=== PATIENT | female | born 1990 | race Two or more races ===

== ENCOUNTER 2017-10-17 08:16 | Inpatient (IN) | payer MEDICAID ==
[2017-10-17] MEDS ORDERED: METHYLERGONOVINE 0.2 MG INJ IM (09:30)
[2017-10-17] MEDS ORDERED: IBUPROFEN 600 MG TAB PO (09:30)
[2017-10-17] MEDS ORDERED: CARBOPROST 250 MCG INJ IM (09:30)
[2017-10-17] MEDS ORDERED: BUTORPHANOL 1 MG INJ IV (09:30)
[2017-10-17] MEDS ORDERED: BUTORPHANOL 2 MG INJ IV (09:30)
[2017-10-17] MEDS ORDERED: OXYTOCIN 30 UNITS/LR 500 ML IV (09:30)
[2017-10-17] MEDS ORDERED: MISOPROSTOL 200 MCG TAB PR (09:30)
[2017-10-17 10:05] LABS: ADD MAN DIFF? NO
[2017-10-17 10:11] LABS: BASOPHILS % 0.3 % (0.0-2.0); EOSINOPHILS # 0.1 10^3/ul (0.0-0.5); EOSINOPHILS % 1.5 % (0.0-7.0); HEMATOCRIT 35.1 % (37.0-47.0); LYMPHOCYTES # 1.2 10^3/ul (0.8-2.9); LYMPHOCYTES % 20.2 % (15.0-51.0); MEAN CORPUSCULAR HEMOGLOBIN 32.4 pg (29.0-33.0); MEAN CORPUSCULAR HGB CONC 34.2 g/dl (32.0-37.0); MEAN CORPUSCULAR VOLUME 94.9 fl (82.0-101.0); MEAN PLATELET VOLUME 11.1 fl (7.4-10.4); MONOCYTE # 0.6 10^3/ul (0.3-0.9); MONOCYTES % 9.3 % (0.0-11.0); NEUTROPHIL # 4.2 10^3/ul (1.6-7.5); NEUTROPHILS % 68.2 % (39.0-77.0); PLATELET COUNT 152 10^3/UL (140-415); RED CELL DISTRIBUTION WIDTH 12.1 % (11.5-14.5)
[2017-10-17 10:11] LABS: WHITE BLOOD COUNT 6.1 10^3/ul (4.8-10.8)
[2017-10-17] MEDS ORDERED: DINOPROSTONE 10 MG VAG SUPP VAG (10:30)
[2017-10-17 10:31] LABS: INR 0.86; PROTIME 11.8 Sec (11.9-14.9); PT RATIO 0.9
[2017-10-17 10:32] LABS: PARTIAL THROMBOPLASTIN TIME 27.1 Sec (25.0-35.0)
[2017-10-17] MEDS: LACTATED RINGER'S 1,000 ML IV* ×2 (11:20→16:36)
[2017-10-17] MEDS: DINOPROSTONE 10 MG VAG SUPP VAG (11:21)
[2017-10-17 14:14] LABS: HEPATITIS B SURFACE ANTIGEN NEGATIVE (NEGATIVE)
[2017-10-17 22:20] LABS: RAPID PLASMA REAGIN NONREACTIVE (NR)
[2017-10-18] MEDS: LACTATED RINGER'S 1,000 ML IV* ×5 (01:15→21:59)
[2017-10-18] MEDS ORDERED: FENTAnyl 2MCG/ML-ROPIV 0.2% 100 ML (17:26)
[2017-10-18] MEDS: OXYTOCIN 30 UNITS/LR 500 ML IV ×3 (18:50→23:29)
[2017-10-18] MEDS ORDERED: NALOXONE (0.4 MG/ML) INJ IV (20:00)
[2017-10-18] MEDS ORDERED: FENTAnyl 2MCG/ML-ROPIV 0.2% 100 ML BAG EPI (20:00)
[2017-10-18] MEDS: MINERAL OIL LIGHT 10 ML VIAL TOP ×2 (21:51→23:38)
[2017-10-18] MEDS: LIDOCAINE 1% (MPF) 30 ML INJ INJ ×2 (23:33→23:37)
[2017-10-19] MEDS: CEFAZOLIN 2 GM/50 ML (PMX) 50 ML IVPB (00:28)
[2017-10-19] MEDS: OXYTOCIN 30 UNITS/LR 500 ML IV (03:40)
[2017-10-19] MEDS ORDERED: MISOPROSTOL 200 MCG TAB PR (04:30)
[2017-10-19] MEDS ORDERED: OXYTOCIN 30 UNITS/LR 500 ML IV (04:30)
[2017-10-19] MEDS ORDERED: ZOLPIDEM 5 MG TAB PO (04:30)
[2017-10-19] MEDS ORDERED: METHYLERGONOVINE 0.2 MG INJ IM (04:30)
[2017-10-19] MEDS ORDERED: HYDROCODONE/APAP (5/325) TAB PO ×2 (04:30)
[2017-10-19] MEDS ORDERED: CARBOPROST 250 MCG INJ IM (04:30)
[2017-10-19] MEDS: CEPHALEXIN 500 MG CAP PO ×3 (05:42→18:25)
[2017-10-19] MEDS: LANOLIN 7 GM TUBE TOP (05:42)
[2017-10-19] MEDS: IBUPROFEN 600 MG TAB PO ×3 (05:42→18:25)
[2017-10-19] MEDS: WITCH HAZEL/GLYCERIN PAD PR (05:43)
[2017-10-19] MEDS: BENZOCAINE 20% 56 ML SPRAY TOP (05:43)
[2017-10-19 06:07] LABS: ADD UMIC YES; UR ASCORBIC ACID NEGATIVE (NEGATIVE); UR BACTERIA FEW /HPF (NONE SEEN); UR BILIRUBIN (Dip) NEGATIVE (NEGATIVE); UR BLOOD (Dip) 3+ mg/dL (NEGATIVE); UR CLARITY CLEAR (CLEAR); UR COLOR YELLOW (YELLOW); UR GLUCOSE (Dip) 1+ mg/dL (NEGATIVE); UR KETONES (Dip) 1+ mg/dL (NEGATIVE); UR LEUKOCYTE ESTERASE (Dip) NEGATIVE Leu/ul (NEGATIVE); UR MUCUS FEW /HPF (NONE SEEN); UR NITRITE (Dip) NEGATIVE (NEGATIVE); UR RBC 13 /HPF (0-5); UR SPECIFIC GRAVITY (Dip) 1.006 (1.003-1.030); UR TOTAL PROTEIN (Dip) 1+ mg/dl (NEGATIVE); UR UROBILINOGEN (Dip) NEGATIVE (NEGATIVE); UR WBC 3 /HPF (0-5)
[2017-10-19] MEDS: LACTATED RINGER'S 1,000 ML IV* ×3 (07:51→20:18)
[2017-10-19 09:19] LABS: ADD MAN DIFF? NO
[2017-10-19 09:26] LABS: BASOPHILS % 0.1 % (0.0-2.0); EOSINOPHILS % 0.3 % (0.0-7.0); HEMATOCRIT 34.2 % (37.0-47.0); HEMOGLOBIN 12.1 g/dl (12.0-16.0); IMMATURE GRANS #M 0.06 10^3/ul; IMMATURE GRANS % (M) 0.4 %; LYMPHOCYTES # 1.4 10^3/ul (0.8-2.9); LYMPHOCYTES % 10.2 % (15.0-51.0); MEAN CORPUSCULAR HEMOGLOBIN 33.3 pg (29.0-33.0); MEAN CORPUSCULAR HGB CONC 35.4 g/dl (32.0-37.0); MEAN CORPUSCULAR VOLUME 94.2 fl (82.0-101.0); MEAN PLATELET VOLUME 11.3 fl (7.4-10.4); MONOCYTE # 1.3 10^3/ul (0.3-0.9); MONOCYTES % 9.5 % (0.0-11.0); NEUTROPHIL # 10.7 10^3/ul (1.6-7.5); NEUTROPHILS % 79.5 % (39.0-77.0); PLATELET COUNT 126 10^3/UL (140-415); RED BLOOD COUNT 3.63 10^6/ul (4.20-5.40); RED CELL DISTRIBUTION WIDTH 12.1 % (11.5-14.5)
[2017-10-19 09:26] LABS: WHITE BLOOD COUNT 13.5 10^3/ul (4.8-10.8)
[2017-10-19] MEDS: SENNA/DOCUSATE NA (8.6MG/50MG) TAB PO ×2 (09:32→21:13)
[2017-10-19] MEDS: MAGNESIUM HYDROXIDE 30ML CUP PO ×2 (09:32→21:13)
[2017-10-19] MEDS: DIBUCAINE 1% 30 GM OINT PR (17:19)
[2017-10-20] MEDS: CEPHALEXIN 500 MG CAP PO ×3 (00:02→11:20)
[2017-10-20] MEDS: IBUPROFEN 600 MG TAB PO ×3 (00:02→11:20)
[2017-10-20 01:49] LABS: RHOGAM PROFILE 1 1
[2017-10-20] MEDS: LACTATED RINGER'S 1,000 ML IV* ×2 (04:18→12:18)
[2017-10-20] MEDS: WITCH HAZEL/GLYCERIN PAD PR (05:40)
[2017-10-20] MEDS: MEASLES,MUMPS,RUBELLA VACCINE INJ SC* (09:00)
[2017-10-20] MEDS: VARICELLA VACCINE LIVE/PF 1,350 UNIT/0.5 ML ML SC* (09:00)
[2017-10-20 09:25] LABS: ADD MAN DIFF? NO
[2017-10-20] MEDS: SENNA/DOCUSATE NA (8.6MG/50MG) TAB PO (09:27)
[2017-10-20] MEDS: MAGNESIUM HYDROXIDE 30ML CUP PO (09:27)
[2017-10-20 09:36] LABS: WHITE BLOOD COUNT 7.6 10^3/ul (4.8-10.8)
[2017-10-20 09:36] LABS: BASOPHILS % 0.4 % (0.0-2.0); EOSINOPHILS # 0.1 10^3/ul (0.0-0.5); EOSINOPHILS % 1.8 % (0.0-7.0); HEMATOCRIT 32.8 % (37.0-47.0); HEMOGLOBIN 11.4 g/dl (12.0-16.0); IMMATURE GRANS #M 0.03 10^3/ul; IMMATURE GRANS % (M) 0.4 %; LYMPHOCYTES # 1.7 10^3/ul (0.8-2.9); LYMPHOCYTES % 22.4 % (15.0-51.0); MEAN CORPUSCULAR HEMOGLOBIN 33.1 pg (29.0-33.0); MEAN CORPUSCULAR HGB CONC 34.8 g/dl (32.0-37.0); MEAN CORPUSCULAR VOLUME 95.3 fl (82.0-101.0); MEAN PLATELET VOLUME 10.9 fl (7.4-10.4); MONOCYTE # 0.4 10^3/ul (0.3-0.9); MONOCYTES % 5.6 % (0.0-11.0); NEUTROPHIL # 5.3 10^3/ul (1.6-7.5); NEUTROPHILS % 69.4 % (39.0-77.0); PLATELET COUNT 158 10^3/UL (140-415); RED BLOOD COUNT 3.44 10^6/ul (4.20-5.40); RED CELL DISTRIBUTION WIDTH 12.3 % (11.5-14.5)
[2017-10-20] MEDS: DIPHTH/TET/ACEL PERTUSS (ADULT) 0.5 ML VIAL IM* (11:25)
== END 2017-10-20 16:32 | disposition home or self-care (01) | DRG 775 ==
LOC: L-D 08:16 → PP1 10-19 03:37
PROVIDERS: Obstetrics & Gynecology
PROC: 3E0P7VZ Introduction of Hormone into Female Reproductive, Via Natural or Artificial Opening (ICD-10-PCS; 2017-10-17 08:00)
DX: O70.0 First degree perineal laceration during delivery (principal); Z3A.40 40 weeks gestation of pregnancy; Z37.0 Single live birth
CPT/HCPCS: 62319; 76815; 81001; 85025; 85610; 85730; 86592; 86850; 86870; 86885; 86900; 86901; 87086; 87340; 88307; 90715